=== PATIENT | female | born 2005 | race Native Hawaiian/Other Pacific Islander ===

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

== ENCOUNTER 2025-02-07 10:45 | Emergency (ER) | payer OTHER ==
[~2025-02-07] VITALS: Ht 152.4 cm; Wt 49.9 kg
[2025-02-07 10:56] VITALS: BP 124/77
[2025-02-07] MEDS ORDERED: OCUFLOX511 LEFTEAR (11:00)
== END 2025-02-07 11:05 | disposition home or self-care (01) ==
LOC: ER 10:45
DX: H60.92 Unspecified otitis externa, left ear (principal); Z79.899 Other long term (current) drug therapy
CPT/HCPCS: 99282